=== PATIENT | male | born 1965 | race Caucasian/White ===

== ENCOUNTER 2017-12-09 09:21 | Inpatient (IN) | payer BC ==
[~2017-12-09] VITALS: Ht 172.7 cm; Wt 60.6 kg
[2017-12-09] VITALS (8 sets, daily range): BP systolic 120–138; BP diastolic 80–88; PULSE 74–98; TEMP 35.8–36.7; O2SAT 98–100; Ht 172.7 cm; Wt 60.6 kg
--- NOTE | 2017-12-09 10:03 | EMERGENCY ROOM VISIT NOTE ---
History Report prepared by Adi: Greg Frank Under the Supervision of: Dr. Jose Hassan M.D. First contact with patient: 09:51 Chief Complaint: ABDOMINAL PAIN Stated Complaint: PAIN IN L SIDE, KIDNEY BLOCKAGE Nursing Triage Summary: triage note pt reports left sided abdominal pain 0730 am pt reports also having a hx of bilateral kidney stones inplace, some back pain. nausea, diarreah History of Present Illness The patient is a 52 year old male who presents to the Emergency Room with complaints of sudden onset LLQ abdominal pain that began this morning at 0730, 2.5 hours prior to arrival. The patient states that the pain onset after his morning bowel movement. He notes that the pain began to radiate into his left lower back and left testicle following the initial onset. He denies any urinary symptoms. He did have diarrhea after the episode, but denies noticing melena or hematochezia . He is aware of a stone present in both kidneys. 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 A total of ten systems were reviewed and were otherwise negative. Past Medical & Surgical Medical Problems: (1) Kidney stones Surgical Problems: (1) History of vasectomy Kidney stones Family History FH: cancer Hypertension Social History Smoking Status: Former Smoker Alcohol Use: occasionally Drug Use: none Occupation Status: employed Current/Historical Medications Scheduled Sildenafil Citrate (Viagra), 25 MG PO PRN Allergies Coded Allergies: Neomycin (Unverified Allergy, Unknown, unk, 12/09/17) Sulfa Antibiotics (Unverified Allergy, Unknown, unk, 12/09/17) Physical Exam Vital Signs Date Time Temp Pulse Resp B/P (MAP) Pulse Ox O2 Delivery O2 Flow Rate FiO2 12/09/17 15:45 36.7 82 17 120/83 100 Room Air 12/09/17 15:35 86 12 127/83 99 Room Air 12/09/17 15:25 83 12 115/80 100 Oxymask 10 12/09/17 15:16 36.3 90 16 130/83 100 Oxymask 10 12/09/17 13:07 100 20 118/76 100 Room Air 12/09/17 11:32 78 18 119/75 98 Room Air 12/09/17 10:26 60 20 109/83 100 Room Air 12/09/17 09:43 36.3 71 18 157/88 98 Room Air Physical Exam GENERAL: Awake, alert, well-appearing, in no distress HENT: Normocephalic, atraumatic. Oropharynx unremarkable. EYES: Normal conjunctiva. Sclera non-icteric. NECK: Supple. No nuchal rigidity. FROM. No JVD. RESPIRATORY: Clear to auscultation. CARDIAC: Regular rate, normal rhythm. Extremities warm and well perfused. Equal palpable radial pulses to the bilateral upper extremities. Equal palpable DP pulses to the bilateral lower extremities. ABDOMEN: Soft, non-distended. No tenderness to palpation. No rebound or guarding. No masses. RECTAL: Deferred. MUSCULOSKELETAL: Chest examination reveals no tenderness. The back is symmetrical on inspection without obvious abnormality. There is no CVA tenderness to palpation. No joint edema. LOWER EXTREMITIES: Calves are equal size bilaterally and non-tender. No edema. No discoloration. NEURO: Normal sensorium. No sensory or motor deficits noted. No pronator drift. No facial droop. No dysarthria. SKIN: No rash or jaundice noted. : There is pain on palpation of the left testicle, no inguinal hernia, no lesions. Penis is circumcised, no penile discharge on exam. Medical Decision & Procedures ER Provider Diagnostic Interpretation: Radiology results as stated below per my review and radiologist interpretation: CT SCAN OF THE ABDOMEN AND PELVIS WITHOUT IV CONTRAST CLINICAL HISTORY: Left flank pain. COMPARISON STUDY: No priors. TECHNIQUE: CT scan of the abdomen and pelvis is performed from the lung bases to the proximal femora. Images are reviewed in the axial, sagittal, and coronal planes. IV contrast was not administered for this examination. A dose lowering technique was utilized adhering to the principles of ALARA. CT DOSE: 491.39 mGycm FINDINGS: Lung bases: The heart is normal in size and without pericardial effusion. Fat-containing Bochdalek hernias are present at both lung bases. There is minimal dependent atelectasis. The lung bases are otherwise clear. Liver: The unenhanced liver is normal in size, contour, and attenuation. There is no intrahepatic biliary ductal dilatation. Gallbladder: Unremarkable. Spleen: Normal in size and attenuation. Pancreas: Unremarkable. Adrenal glands: Unremarkable. Kidneys: The unenhanced kidneys are normal in size. There is an 8 mm obstructing calculus in the mid left ureter at the level of L4 seen on image #177. This causes moderate to severe left hydroureteronephrosis. There is associated left-sided perinephric stranding and fluid. No additional calculi are identified in the left kidney. A 5 mm nonobstructing calculus is seen in the right lower pole. There is no evidence of contour deforming renal mass lesion. Abdominal vasculature: The abdominal aorta is normal in course and caliber. Bowel: The small bowel and colon are normal in course and caliber. The appendix is well-visualized and normal. Peritoneum: There is no intraperitoneal free air or abdominal ascites. There is a small fat-containing umbilical hernia. Lymphadenopathy: None. Pelvic viscera: The bladder, prostate, and seminal vesicles are normal as visualized. Surgical clips are seen along the spermatic cord bilaterally. Skeletal structures: No lytic or blastic lesions are seen. IMPRESSION: 1. There is an 8 mm obstructing calculus in the mid left ureter causing moderate to severe left hydroureteronephrosis. 2. No additional left renal calculi are identified. 3. There is a 5 mm nonobstructing calculus in the lower pole the right kidney. 4. Additional findings as above. Electronically signed by: Deven Mena M.D. 12/09/2017 11:37 AM Dictated Date/Time: 12/09/2017 11:33 AM TESTICULAR ULTRASOUND CLINICAL HISTORY: L testicular pain COMPARISON STUDY: None FINDINGS: The right testis measures 47 x 31 x 22 mm pure the left testis measures 53 x 33 x 19 mm. No intratesticular masses are visualized. There is no testicular torsion. No epididymal abnormalities were visualized. IMPRESSION: Normal study. No evidence of testicular torsion. No evidence of intratesticular mass. Electronically signed by: Tani Falcon M.D. 12/09/2017 11:28 AM Dictated Date/Time: 12/09/2017 11:26 AM Laboratory Results 12/09/17 10:20 Red Blood Count 4.65, Mean Corpuscular Volume 90.3, Mean Corpuscular Hemoglobin 32.0, Mean Corpuscular Hemoglobin Concent 35.5, Mean Platelet Volume 10.2, Neutrophils (%) (Auto) 87.9, Lymphocytes (%) (Auto) 7.4, Monocytes (%) (Auto) 4.2, Eosinophils (%) (Auto) 0.2, Basophils (%) (Auto) 0.1, Neutrophils # (Auto) 12.53, Lymphocytes # (Auto) 1.06, Monocytes # (Auto) 0.60, Eosinophils # (Auto) 0.03, Basophils # (Auto) 0.02 12/09/17 10:20 Test 12/09/17 10:20 12/09/17 11:35 White Blood Count 14.27 K/uL (4.8-10.8) Red Blood Count 4.65 M/uL (4.7-6.1) Hemoglobin 14.9 g/dL (14.0-18.0) Hematocrit 42.0 % (42-52) Mean Corpuscular Volume 90.3 fL (80-100) Mean Corpuscular Hemoglobin 32.0 pg (25-34) Mean Corpuscular Hemoglobin Concent 35.5 g/dl (32-36) Platelet Count 237 K/uL (130-400) Mean Platelet Volume 10.2 fL (7.4-10.4) Neutrophils (%) (Auto) 87.9 % Lymphocytes (%) (Auto) 7.4 % Monocytes (%) (Auto) 4.2 % Eosinophils (%) (Auto) 0.2 % Basophils (%) (Auto) 0.1 % Neutrophils # (Auto) 12.53 K/uL (1.4-6.5) Lymphocytes # (Auto) 1.06 K/uL (1.2-3.4) Monocytes # (Auto) 0.60 K/uL (0.11-0.59) Eosinophils # (Auto) 0.03 K/uL (0-0.5) Basophils # (Auto) 0.02 K/uL (0-0.2) RDW Standard Deviation 40.8 fL (36.4-46.3) RDW Coefficient of Variation 12.5 % (11.5-14.5) Immature Granulocyte % (Auto) 0.2 % Immature Granulocyte # (Auto) 0.03 K/uL (0.00-0.02) Anion Gap 3.0 mmol/L (3-11) Est Creatinine Clear Calc Drug Dose 64.2 ml/min Estimated GFR () 84.6 Estimated GFR (Non- 73.0 BUN/Creatinine Ratio 22.9 (10-20) Calcium Level 9.4 mg/dl (8.5-10.1) Urine Color YELLOW Urine Appearance CLEAR (CLEAR) Urine pH 5.0 (4.5-7.5) Urine Specific [place] 1.026 (1.000-1.030) Urine Protein TRACE (NEG) Urine Glucose (UA) NEG (NEG) Urine Ketones TRACE (NEG) Urine Occult Blood 3+ (NEG) Urine Nitrite NEG (NEG) Urine Bilirubin NEG (NEG) Urine Urobilinogen NEG (NEG) Urine Leukocyte Esterase TRACE (NEG) Urine WBC (Auto) 5-10 /hpf (0-5) Urine RBC (Auto) >30 /hpf (0-4) Urine Hyaline Casts (Auto) 5-10 /lpf (0-5) Urine Epithelial Cells (Auto) >30 /lpf (0-5) Urine Bacteria (Auto) NEG (NEG) Urine Renal Epithelial Cells /lpf (0-5) Laboratory results reviewed by me Medications Administered Medications (Trade) Dose Ordered Sig/Mp Route Start Time Stop Time Status Last Admin Dose Admin Sodium Chloride 1,000 ml @ 999 mls/hr Q1H1M STAT IV 12/09/17 10:08 12/09/17 11:08 DC 12/09/17 10:08 999 MLS/HR Ketorolac Tromethamine (Toradol Inj) 15 mg NOW STAT IV 12/09/17 10:08 12/09/17 10:13 DC 12/09/17 10:21 15 MG Ketorolac Tromethamine (Toradol Inj) 15 mg NOW STAT IV 12/09/17 11:53 12/09/17 11:54 DC 12/09/17 11:58 15 MG Ceftriaxone Sodium (Rocephin Inj) 1 gm NOW STAT IV 12/09/17 12:53 12/09/17 12:57 DC 12/09/17 13:05 1 GM Iothalamate Meglumine (Conray 30%) 150 ml STK-MED ONCE .ROUTE 12/09/17 14:56 12/09/17 14:57 DC 12/09/17 14:56 10 ML ED Course 1245: I reevaluated the patient at this time. He is still having pain despite 2 doses of Toradol. I am paging the Unassigned Urology for consult. I will order Morphine for the patient now. 1252: I discussed the case with Craig Pisano PA-C. 1256: The nursing staff informed me that the patient claims that he does not react well to Morphine and refused it We are starting him on Rocephin. 1300: I discussed the case with Maura Gray. She will evaluate the patient for further treatment. Medical Decision The patient's CT shows large left sided kidney stone which is causing hydroureter. Patient's pain was unable to be controlled despite multiple dosages of analgesia. I discussed the case with urology who suggests admission to the hospital, NPO. Hospitalist agrees. Rocephin was ordered for given the results of the urine dip and leukocytosis Consults Time Called: 1245 Consulting Physician: Craig Pisano Returned Call: 1252 I discussed the case with Craig Pisano PA-C. Additional Consults: Time Called: 1253 Consulted Physician: Maura GEORGES Returned Call: 1300 Additional Comments: I discussed the case with Maura Gray. She will evaluate the patient for further treatment. Impression Primary Impression: Nephrolithiasis Additional Impressions: Hydroureter Infection, kidney Scribe Attestation The scribe's documentation has been prepared under my direction and personally reviewed by me in its entirety. I confirm that the note above accurately reflects all work, treatment, procedures, and medical decision making performed by me. Departure Information Dispostion Being Evaluated By Hospitalist Referrals Kushal Geiger M.D. (PCP) Patient Instructions My [facility] Problem Qualifiers
[2017-12-09] MEDS ORDERED: KETOROLAC TROMETHAMINE 30 MG/ML VIAL IV STA ×2 (10:08→11:53)
[2017-12-09] MEDS ORDERED: SODIUM CHLORIDE 0.9% 1000ML 1,000 ML IV STA (10:08)
[2017-12-09] MEDS ORDERED: SILD1TAB11 PO (10:14)
[2017-12-09 10:28] LABS: BASO % 0.1 %; BASO ABS # 0.02 K/uL (0-0.2); EOS % 0.2 %; EOS ABS # 0.03 K/uL (0-0.5); HEMOGLOBIN 14.9 g/dL (14.0-18.0); IG# 0.03 K/uL (0.00-0.02); LYMPH % 7.4 %; LYMPH ABS # 1.06 K/uL (1.2-3.4); MEAN CELL VOLUME 90.3 fL (80-100); MEAN CORPUSCULAR HGB CONC 35.5 g/dl (32-36); MEAN PLATELET VOLUME 10.2 fL (7.4-10.4); MONO % 4.2 %; NEUT % 87.9 %; NEUT ABS # 12.53 K/uL (1.4-6.5); PLATELET COUNT 237 K/uL (130-400); RED CELL DISTRIBUTION WIDTH CV 12.5 % (11.5-14.5); RED CELL DISTRIBUTION WIDTH SD 40.8 fL (36.4-46.3); WHITE BLOOD COUNT 14.27 K/uL (4.8-10.8)
[2017-12-09 10:45] LABS: CALCIUM 9.4 mg/dl (8.5-10.1); CREATININE 1.14 mg/dl (0.60-1.40); POTASSIUM 3.9 mmol/L (3.5-5.1)
--- NOTE | 2017-12-09 11:29 | DIAGNOSTIC IMAGING REPORT ---
TESTICULAR ULTRASOUND CLINICAL HISTORY: L testicular pain COMPARISON STUDY: None FINDINGS: The right testis measures 47 x 31 x 22 mm pure the left testis measures 53 x 33 x 19 mm. No intratesticular masses are visualized. There is no testicular torsion. No epididymal abnormalities were visualized. IMPRESSION: Normal study. No evidence of testicular torsion. No evidence of intratesticular mass. Electronically signed by: Tani Falcon M.D. 12/09/2017 11:28 AM Dictated Date/Time: 12/09/2017 11:26 AM
--- NOTE | 2017-12-09 11:38 | DIAGNOSTIC IMAGING REPORT ---
CT SCAN OF THE ABDOMEN AND PELVIS WITHOUT IV CONTRAST CLINICAL HISTORY: Left flank pain. COMPARISON STUDY: No priors. TECHNIQUE: CT scan of the abdomen and pelvis is performed from the lung bases to the proximal femora. Images are reviewed in the axial, sagittal, and coronal planes. IV contrast was not administered for this examination. A dose lowering technique was utilized adhering to the principles of ALARA. CT DOSE: 491.39 mGycm FINDINGS: Lung bases: The heart is normal in size and without pericardial effusion. Fat-containing Bochdalek hernias are present at both lung bases. There is minimal dependent atelectasis. The lung bases are otherwise clear. Liver: The unenhanced liver is normal in size, contour, and attenuation. There is no intrahepatic biliary ductal dilatation. Gallbladder: Unremarkable. Spleen: Normal in size and attenuation. Pancreas: Unremarkable. Adrenal glands: Unremarkable. Kidneys: The unenhanced kidneys are normal in size. There is an 8 mm obstructing calculus in the mid left ureter at the level of L4 seen on image #177. This causes moderate to severe left hydroureteronephrosis. There is associated left-sided perinephric stranding and fluid. No additional calculi are identified in the left kidney. A 5 mm nonobstructing calculus is seen in the right lower pole. There is no evidence of contour deforming renal mass lesion. Abdominal vasculature: The abdominal aorta is normal in course and caliber. Bowel: The small bowel and colon are normal in course and caliber. The appendix is well-visualized and normal. Peritoneum: There is no intraperitoneal free air or abdominal ascites. There is a small fat-containing umbilical hernia. Lymphadenopathy: None. Pelvic viscera: The bladder, prostate, and seminal vesicles are normal as visualized. Surgical clips are seen along the spermatic cord bilaterally. Skeletal structures: No lytic or blastic lesions are seen. IMPRESSION: 1. There is an 8 mm obstructing calculus in the mid left ureter causing moderate to severe left hydroureteronephrosis. 2. No additional left renal calculi are identified. 3. There is a 5 mm nonobstructing calculus in the lower pole the right kidney. 4. Additional findings as above. Electronically signed by: Deven Mena M.D. 12/09/2017 11:37 AM Dictated Date/Time: 12/09/2017 11:33 AM
[2017-12-09] MEDS ORDERED: MoRPHine SULFATE 10 MG/ML CARP/VIAL IV STA (12:47)
[2017-12-09] MEDS ORDERED: ONDANSETRON INJ 2 MG/ML 2 ML VIAL IV STA (12:47)
[2017-12-09] MEDS ORDERED: CEFTRIAXONE SOD INJ 1 GM ADDVIAL IV STA (12:53)
[2017-12-09] MEDS ORDERED: ACETAMINOPHEN 325 MG TAB PO PRN (13:30)
[2017-12-09] MEDS ORDERED: ONDANSETRON INJ 2 MG/ML 2 ML VIAL IV PRN ×2 (13:30→14:15)
--- NOTE | 2017-12-09 13:39 | Urology Consultation ---
History General Date of Service: Dec 09, 2017. Primary Care Physician: Kushal Geiger M.D. Pt seen a urologist before?: Yes If yes, why?: Hematuria, stone History of Present Illness Woke up with severe left flank pain radiating to the groin in waves with no position of comfort. Doubles over in severe sharp pain. Mild improvement in ER. Found to have 8mm obstr stone on left. Laboratory Labs were reviewed and are within normal limits unless listed below. Labs are available in the chart and at [facility] Problem List Medical Problems: (1) Kidney stones Status: Chronic Past History kidney stones Pt had a problem w anesthesia?: No Past Surgical History: no surgical history Family History FH: cancer Hypertension Social History Occupation status: employed History of MDRO No Allergies Coded Allergies: Neomycin (Unverified Allergy, Unknown, unk, 12/09/17) Sulfa Antibiotics (Unverified Allergy, Unknown, unk, 12/09/17) Medications Home Medications: Home Meds and Scripts Medications Dose Route/Sig Max Daily Dose Days Date Category Viagra (Sildenafil Citrate) 25 Mg Tab 25 Mg PO PRN 12/09/17 Reported Inpatient Medications: Current Inpatient Medications Medications (Trade) Dose Ordered Sig/Mp Route Start Time Stop Time Status Last Admin Dose Admin Acetaminophen (Tylenol Tab) 650 mg Q4H PRN PO 12/09/17 13:30 01/08/18 13:29 UNV Ondansetron HCl (Zofran Inj) 4 mg Q6H PRN IV 12/09/17 13:30 01/08/18 13:29 UNV Review of Systems Review of Systems All Other Systems: Reviewed and Negative Additional Comments: All reviewed. Pertinent positives and negatives in HPI. Physical Exam Vital Signs: Vital Signs Past 12 Hours Date Time Temp Pulse Resp B/P (MAP) Pulse Ox O2 Delivery O2 Flow Rate FiO2 12/09/17 13:07 100 20 118/76 100 Room Air 12/09/17 11:32 78 18 119/75 98 Room Air 12/09/17 10:26 60 20 109/83 100 Room Air 12/09/17 09:43 36.3 71 18 157/88 98 Room Air Physical Exam: General Appearance: WD/WN, no apparent distress Eyes: bilateral eyes normal inspection ENT: normal ENT inspection, pharynx normal Neck: supple, no JVD Respiratory/Chest: chest non-tender, no respiratory distress Cardiovascular: regular rate, rhythm Gastrointestinal: Abdomen: normal abdomen Bladder: tender Renal: cva tenderness Extremities: normal range of motion, normal inspection, no pedal edema, no calf tenderness 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 Left Obst Stone 2. Intractible Pain. Plan to go to OR with cystoscopy and stent placement on left for obstructing stone. Risks and benefits discussed at length with the patient. Will assess stone and position to determine treatment options. Will follow closely. Agree with preoperative antibiotics.
[2017-12-09] MEDS ORDERED: KETOROLAC TROMETHAMINE 30 MG/ML VIAL IV PRN (13:45)
[2017-12-09] MEDS ORDERED: PROMETHAZINE HCL INJ 6.25 MG in SODIUM CHLORIDE 0.9% 50ML 50 ML IV PRN (14:15)
[2017-12-09] MEDS ORDERED: FENTANYL CITRATE INJ 50 MCG/1 ML 2 ML VIAL IV PRN (14:15)
[2017-12-09] MEDS ORDERED: EpHEDrine SULFATE INJ 50 MG/ML AMP IV PRN (14:15)
[2017-12-09] MEDS ORDERED: ATROPINE SULFATE 0.1 MG/ML 5ML SYR IV PRN (14:15)
[2017-12-09] MEDS ORDERED: MIDAZOLAM HCL 1 MG/ML 2ML VIAL ONE (14:28)
[2017-12-09] MEDS ORDERED: PROPOFOL IV EMULSION 10 MG/ML 20 ML VIAL IV ONE (14:28)
[2017-12-09] MEDS ORDERED: LIDOCAINE HCL 2% 2 ML VIAL (20MG/ML) ONE (14:28)
[2017-12-09] MEDS ORDERED: FENTANYL CITRATE INJ 50 MCG/1 ML 2 ML VIAL ONE (14:28)
[2017-12-09] MEDS ORDERED: CONRAY 30% 150ML BOTTLE ONE (14:56)
[2017-12-09] MEDS ORDERED: ONDANSETRON INJ 2 MG/ML 2 ML VIAL ONE (15:03)
--- NOTE | 2017-12-09 15:08 | [facility] Operative Report ---
Operative Report Operative Date Dec 09, 2017. Pre-Operative Diagnosis Stone Post-Operative Diagnosis Same Procedure(s) Performed Cystoscopy and left stent placement Surgeon Gareth Estimated Blood Loss Minimal Findings Obstructing left stone. Specimens None Drains 6x26 Double J Left Anesthesia General Complication(s) None Disposition Recovery Room / PACU Indications Obstructing stone with severe pain and no position of relief. Description of Procedure Patient was consented and brought back to the operating room. Patient was placed under anesthesia in the supine position and moved to the dorsal lithotomy position. Patient was prepped and draped in the regular sterile fashion. A time out was completed. A 30degree Cystoscope was placed into the bladder and the entire bladder was examined. The UO's were identified. The left was cannulized with a catheter and a retrograde pyelogram was completed. A wire was then placed. With the wire in place, a 6 x [26] Double J stent was placed. It was confirmed with fluoroscopy. With the stent in place, the bladder was emptied. The scope was removed. The patient was cleaned, aroused from anesthesia, and transferred to the pacu in stable condition having tolerated the procedure well with no complications. I was present and participated in all aspects of the procedure. The patient will be monitored in the PACU until transferred. I attest to the content of the Intraoperative Record and any orders documented therein. Any exceptions are noted below.
--- NOTE | 2017-12-09 15:15 | History and Physical ---
History & Physical Date & Time of Service: Dec 09, 2017 ~ 13:15 Chief Complaint: LLQ Pain Primary Care Physician: Kushal Geiger M.D. History of Present Illness 52 year old male who presented to the ED with LLQ pain. Patient reports pain came on suddenly around 0730 this morning. Pain was severe. It radiated into the left groin. He denies flank pain. No dysuria or hematuria. Reports he has been feeling well recently. No fevers or chills. He reports nausea when the pain was severe. No vomiting or diarrhea. He denies chest pain and shortness of breath. No lightheadedness, dizziness, diaphoresis, or syncopal events. In the ED, patient is found to have an 8 mm obstructing calculus in the mid left ureter causing moderate to severe left hydroureteronephrosis. Renal functions are normal. WBC 14K. Vitals are stable. Patient was given IVF, IV Toradol, and IV Rocephin. He reports much improvement in his symptoms. Past Medical/Surgical History Medical Problems: (1) Kidney stones Status: Chronic Surgical Problems: (1) History of vasectomy Status: Chronic Family History FH: ovarian cancer MOTHER Social History Smoking Status: Former Smoker Alcohol Use: occasionally Immunizations History of Influenza Vaccine: Yes Influenza Vaccine Date: Aug 17, 2017 History of Tetanus Vaccine?: Yes Tetanus Immunization Date: Dec 17, 2010 Multi-Drug Resistant Organisms History of MDRO: No Allergies Coded Allergies: Neomycin (Unverified Allergy, Unknown, unk, 12/09/17) Sulfa Antibiotics (Unverified Allergy, Unknown, unk, 12/09/17) Home Medications Scheduled Sildenafil Citrate (Viagra), 25 MG PO PRN Review of Systems ROS per HPI, all other systems reviewed and negative Physical Exam Vital Signs Date Time Temp Pulse Resp B/P (MAP) Pulse Ox O2 Delivery O2 Flow Rate FiO2 12/09/17 13:07 100 20 118/76 100 Room Air 12/09/17 11:32 78 18 119/75 98 Room Air 12/09/17 10:26 60 20 109/83 100 Room Air 12/09/17 09:43 36.3 71 18 157/88 98 Room Air General Appearance: WD/WN, no apparent distress Head: normocephalic, atraumatic Eyes: normal inspection, EOMI, sclerae normal ENT: hearing grossly normal, + pertinent finding (mucous membranes moist) Neck: supple, no JVD, trachea midline Respiratory/Chest: lungs clear, normal breath sounds, no respiratory distress Cardiovascular: regular rate, rhythm, no edema, normal peripheral pulses Abdomen/GI: normal bowel sounds, non tender, soft, no organomegaly Back: no CVA tenderness Extremities/Musculoskelatal: normal inspection, no calf tenderness, normal capillary refill Neurologic/Psych: no motor/sensory deficits, alert, normal mood/affect, oriented x 3 Skin: normal color, warm/dry Diagnostics Laboratory Results Results Past 24 Hours Test 12/09/17 10:20 12/09/17 11:35 Range/Units White Blood Count 14.27 4.8-10.8 K/uL Red Blood Count 4.65 4.7-6.1 M/uL Hemoglobin 14.9 14.0-18.0 g/dL Hematocrit 42.0 42-52 % Mean Corpuscular Volume 90.3 80-100 fL Mean Corpuscular Hemoglobin 32.0 25-34 pg Mean Corpuscular Hemoglobin Concent 35.5 32-36 g/dl Platelet Count 237 130-400 K/uL Mean Platelet Volume 10.2 7.4-10.4 fL Neutrophils (%) (Auto) 87.9 % Lymphocytes (%) (Auto) 7.4 % Monocytes (%) (Auto) 4.2 % Eosinophils (%) (Auto) 0.2 % Basophils (%) (Auto) 0.1 % Neutrophils # (Auto) 12.53 1.4-6.5 K/uL Lymphocytes # (Auto) 1.06 1.2-3.4 K/uL Monocytes # (Auto) 0.60 0.11-0.59 K/uL Eosinophils # (Auto) 0.03 0-0.5 K/uL Basophils # (Auto) 0.02 0-0.2 K/uL RDW Standard Deviation 40.8 36.4-46.3 fL RDW Coefficient of Variation 12.5 11.5-14.5 % Immature Granulocyte % (Auto) 0.2 % Immature Granulocyte # (Auto) 0.03 0.00-0.02 K/uL Sodium Level 136 136-145 mmol/L Potassium Level 3.9 3.5-5.1 mmol/L Chloride Level 103 98-107 mmol/L Carbon Dioxide Level 30 21-32 mmol/L Anion Gap 3.0 3-11 mmol/L Blood Urea Nitrogen 26 7-18 mg/dl Creatinine 1.14 0.60-1.40 mg/dl Est Creatinine Clear Calc Drug Dose 64.2 ml/min Estimated GFR () 84.6 Estimated GFR (Non- 73.0 BUN/Creatinine Ratio 22.9 10-20 Random Glucose 116 70-99 mg/dl Calcium Level 9.4 8.5-10.1 mg/dl Urine Color YELLOW Urine Appearance CLEAR CLEAR Urine pH 5.0 4.5-7.5 Urine Specific [place] 1.026 1.000-1.030 Urine Protein TRACE NEG Urine Glucose (UA) NEG NEG Urine Ketones TRACE NEG Urine Occult Blood 3+ NEG Urine Nitrite NEG NEG Urine Bilirubin NEG NEG Urine Urobilinogen NEG NEG Urine Leukocyte Esterase TRACE NEG Urine WBC (Auto) 5-10 0-5 /hpf Urine RBC (Auto) >30 0-4 /hpf Urine Hyaline Casts (Auto) 5-10 0-5 /lpf Urine Epithelial Cells (Auto) >30 0-5 /lpf Urine Bacteria (Auto) NEG NEG Urine Renal Epithelial Cells 0-5 /lpf Diagnostic Radiology TESTICULAR US IMPRESSION: Normal study. No evidence of testicular torsion. No evidence of intratesticular mass. CT ABD/PELVIS IMPRESSION: 1. There is an 8 mm obstructing calculus in the mid left ureter causing moderate to severe left hydroureteronephrosis. 2. No additional left renal calculi are identified. 3. There is a 5 mm nonobstructing calculus in the lower pole the right kidney. Impression Assessment and Plan LEFT OBSTRUCTING URETERAL CALCULI WITH HYDRONEPHROSIS - admit to med/surg - patient presenting with sudden onset of LLQ pain that began this morning; in the ED, found to have 8mm obstructing left ureteral calculi - going to OR for cysto directly from ED with Dr. Servin - U/A abnormal however possibly contaminant; s/p Rocephin in the ED, will continue with for now - renal functions normal - IVF, pain control DVT PROPHYLAXIS - SCDs due to invasive procedure DISPO - In my clinical judgment this beneficiary meets acute admission criteria, established by [facility], that includes being hospitalized through two midnights. ADDENDUM: I saw the patient in room 356 after the cystoscope and stent was placed. He denies any pain now. Denies urinary symptoms at this time. Tolerating PO intake with no nausea/vomiting. Plan for tonight: continue IV fluids and IV Rocephin will likely be discharged in AM on antibiotics, pain meds and outpatient urology f/u (he would like to see Dr. Leon on discharge) VTE Prophylaxis VTE Risk Assessment Done? Y/N: Yes Risk Level: Low
--- NOTE | 2017-12-09 15:29 | DIAGNOSTIC IMAGING REPORT ---
RETROGRADE INCLUDES KUB CLINICAL HISTORY: STENT PLACEMENT COMPARISON STUDY: CT of the abdomen and pelvis December 09, 2017. Fluoroscopy time: 1 minute and 20 seconds. FINDINGS: 4 fluoroscopic images from a left retrograde exam demonstrate the proximal left ureteral calculus with placement of a left ureteral stent. The stent appears appropriately positioned. IMPRESSION: Fluoroscopic images from left retrograde exam with ureteral stent insertion. Electronically signed by: Jv Terry M.D. 12/09/2017 3:27 PM Dictated Date/Time: 12/09/2017 3:26 PM
--- NOTE | 2017-12-09 15:48 | Anesthesiology Progress Note ---
Anesthesia Post Op Note Date & Time Dec 09, 2017 at 15:48 Vital Signs Pain Intensity: 0 Vital Signs Past 12 Hours Date Time Temp Pulse Resp B/P (MAP) Pulse Ox O2 Delivery O2 Flow Rate FiO2 12/09/17 15:45 36.7 82 17 120/83 100 Room Air 12/09/17 15:35 86 12 127/83 99 Room Air 12/09/17 15:25 83 12 115/80 100 Oxymask 10 12/09/17 15:16 36.3 90 16 130/83 100 Oxymask 10 12/09/17 13:07 100 20 118/76 100 Room Air 12/09/17 11:32 78 18 119/75 98 Room Air 12/09/17 10:26 60 20 109/83 100 Room Air 12/09/17 09:43 36.3 71 18 157/88 98 Room Air Notes Mental Status: alert / awake / arousable, participated in evaluation Pt Amnestic to Procedure: Yes Nausea / Vomiting: adequately controlled Pain: adequately controlled Airway Patency, RR, SpO2: stable & adequate BP & HR: stable & adequate Hydration State: stable & adequate Anesthetic Complications: no major complications apparent
[2017-12-09] MEDS: SODIUM CHLORIDE 0.9% 1000ML 1,000 ML IV SCH (17:26)
[2017-12-10] MEDS: SODIUM CHLORIDE 0.9% 1000ML 1,000 ML IV SCH ×2 (03:06→13:00)
[2017-12-10] MEDS ORDERED: NURSING VERBAL MED ORDER ONE (03:15)
[2017-12-10 03:28] VITALS: BP 118/82; PULSE 68; TEMP 36.6; O2SAT 98
[2017-12-10 07:14] LABS: HEMATOCRIT 37.6 % (42-52); MEAN CELL VOLUME 90.8 fL (80-100); MEAN CORPUSCULAR HEMOGLOBIN 31.4 pg (25-34); MEAN CORPUSCULAR HGB CONC 34.6 g/dl (32-36); PLATELET COUNT 184 K/uL (130-400); RED CELL DISTRIBUTION WIDTH CV 12.6 % (11.5-14.5); RED CELL DISTRIBUTION WIDTH SD 41.6 fL (36.4-46.3); WHITE BLOOD COUNT 6.71 K/uL (4.8-10.8)
[2017-12-10 07:20] VITALS: O2SAT 98
[2017-12-10 07:39] VITALS: BP 118/76; PULSE 74; TEMP 36.7; O2SAT 98
[2017-12-10 07:46] LABS: CALCIUM 8.3 mg/dl (8.5-10.1); CREATININE 0.82 mg/dl (0.60-1.40); POTASSIUM 3.9 mmol/L (3.5-5.1)
--- NOTE | 2017-12-10 08:40 | Anesthesiology Progress Note ---
Anesthesia Post Op Note Date & Time Dec 10, 2017 at 08:40 Vital Signs Pain Intensity: 0.0 Vital Signs Past 12 Hours Date Time Temp Pulse Resp B/P (MAP) Pulse Ox O2 Delivery O2 Flow Rate FiO2 12/10/17 07:39 36.7 74 16 118/76 (90) 98 Room Air 12/10/17 07:20 98 Room Air 12/10/17 03:28 36.6 68 14 118/82 (94) 98 Room Air 12/09/17 23:20 99 Room Air 12/09/17 23:10 36.6 75 16 123/82 (96) 99 Room Air Notes Mental Status: alert / awake / arousable, participated in evaluation Pt Amnestic to Procedure: Yes Nausea / Vomiting: adequately controlled Pain: adequately controlled Airway Patency, RR, SpO2: stable & adequate BP & HR: stable & adequate Hydration State: stable & adequate Anesthetic Complications: no major complications apparent
[2017-12-10] MEDS ORDERED: CEFTRIAXONE SOD INJ 1 GM in DEXTROSE 5% ADD-VANTAGE 50ML 50 ML IV SCH (09:00)
[2017-12-10 10:37] VITALS: BP 115/74; PULSE 84; TEMP 36.7; O2SAT 99
[2017-12-10 10:48] VITALS: BP 115/74; PULSE 84; TEMP 36.7; O2SAT 99
[2017-12-10] MEDS ORDERED: CIPR-255 PO (11:24)
[2017-12-10] MEDS ORDERED: TAMS0.4C38 PO (11:24)
--- NOTE | 2017-12-10 11:31 | Discharge Instructions ---
Discharge Instructions Date of Service Dec 10, 2017. Admission Reason for Admission: Kidney Stone Discharge Discharge Diagnosis / Problem: Kidney Stone Discharge Goals Goal(s): Decrease discomfort, Improve function Activity Recommendations Activity Limitations: resume your previous activity . Instructions / Follow-Up Instructions / Follow-Up You were admitted to the hospital for a kidney stone. You had a procedure to have the stone removed and also had a stent placed. Start taking Flomax 0.4mg daily - take your first dose today Cipro 500mg twice a day for 5 days - take your first dose tomorrow You will receive a call from the urology office regarding follow up appointment. Appointment with Dr. Geiger - Wednesday12/17/16 at 10:45 Current Hospital Diet Patient's current hospital diet: Regular Diet Discharge Diet Recommended Diet: Regular Diet Procedures Procedures Performed: Cystoscopy and left stent placement Pending Studies Studies pending at discharge: no Medical Emergencies . Who to Call and When: Medical Emergencies: If at any time you feel your situation is an emergency, please call 911 immediately. . Non-Emergent Contact Non-Emergency issues call your: Primary Care Provider, Hospital Doctor Call Non-Emergent contact if: you have a fever, your pain is not controlled, you have any medication questions . Past History Medical & Surgical History: (1) Kidney stones (2) History of vasectomy . "Provider Documentation" section prepared by Maura Luo. . VTE Core Measure Inpt VTE Proph given/why not?: SCD's
--- NOTE | 2017-12-10 13:05 | Progress Note ---
Subjective Date of Service: Dec 10, 2017. Subjective Pt evaluation today including: conversation w/ patient Pain: Controlled Doing well. Pain well controlled. Stent tolerated. Ambulating. No fevers. Problem List Medical Problems: (1) Kidney stones Status: Chronic Review of Systems All Other Systems: Reviewed and Negative Objective Vital Signs Date Time Temp Pulse Resp B/P (MAP) Pulse Ox O2 Delivery O2 Flow Rate FiO2 12/10/17 10:48 36.7 84 16 99 Room Air 12/10/17 10:37 36.7 84 16 115/74 (88) 99 Room Air 12/10/17 07:39 36.7 74 16 118/76 (90) 98 Room Air 12/10/17 07:20 98 Room Air 12/10/17 03:28 36.6 68 14 118/82 (94) 98 Room Air 12/09/17 23:20 99 Room Air 12/09/17 23:10 36.6 75 16 123/82 (96) 99 Room Air 12/09/17 19:13 36.6 97 18 138/88 (105) 99 Room Air 12/09/17 17:56 36.5 74 20 130/87 (101) 100 Room Air 12/09/17 17:22 Room Air 12/09/17 17:04 Room Air 12/09/17 17:00 35.8 76 18 134/80 (98) 100 Room Air 12/09/17 16:42 36.7 17 120/83 Room Air 12/09/17 16:30 36.5 78 16 136/80 (98) 100 Room Air 12/09/17 16:00 36.4 98 16 129/80 (96) 98 Room Air 12/09/17 15:45 36.7 82 17 120/83 100 Room Air 12/09/17 15:35 86 12 127/83 99 Room Air 12/09/17 15:25 83 12 115/80 100 Oxymask 10 12/09/17 15:16 36.3 90 16 130/83 100 Oxymask 10 12/09/17 13:07 100 20 118/76 100 Room Air Physical Exam General Appearance: WD/WN, no apparent distress Eyes: normal inspection Neck: supple, no adenopathy Respiratory/Chest: no respiratory distress Cardiovascular: regular rate, rhythm Abdomen: non tender, soft, no organomegaly Extremities: normal range of motion, normal inspection, no pedal edema Neurologic/Psychiatric: gem stone cutter II-XII nml as tested, no motor/sensory deficits, alert, normal mood/affect, oriented x 3 Skin: normal color, warm/dry, no rash Lymphatic: no adenopathy Laboratory Results Last 24 Hours Test 12/10/17 06:55 White Blood Count 6.71 K/uL Red Blood Count 4.14 M/uL Hemoglobin 13.0 g/dL Hematocrit 37.6 % Mean Corpuscular Volume 90.8 fL Mean Corpuscular Hemoglobin 31.4 pg Mean Corpuscular Hemoglobin Concent 34.6 g/dl RDW Standard Deviation 41.6 fL RDW Coefficient of Variation 12.6 % Platelet Count 184 K/uL Mean Platelet Volume 10.0 fL Sodium Level 138 mmol/L Potassium Level 3.9 mmol/L Chloride Level 107 mmol/L Carbon Dioxide Level 25 mmol/L Anion Gap 6.0 mmol/L Blood Urea Nitrogen 18 mg/dl Creatinine 0.82 mg/dl Est Creatinine Clear Calc Drug Dose 89.3 ml/min Estimated GFR () 117.0 Estimated GFR (Non- 101.0 BUN/Creatinine Ratio 21.5 Random Glucose 89 mg/dl Calcium Level 8.3 mg/dl Assessment and Plan POD 1 s/p Stent Left Kidney for obs stone Plan to follow up in 1 week to discuss treatment. Continue pain meds as needed with antibiotics for coverage. Monitor for issues and fever.
--- NOTE | 2017-12-10 13:36 | Hospitalist Progress Note ---
Hospitalist Progress Note Date of Service Dec 10, 2017. (Maura Luo ., JOSÉ MANUEL) Subjective Had cysto with stone removal and stent placement yesterday. Patient reports feeling much better today. Mild discomfort with urination. No flank pain. Denies fever and chills. No abdominal pain, nausea, or vomiting. (Maura Luo ., JOSÉ MANUEL) Objective Vital Signs Date Time Temp Pulse Resp B/P (MAP) Pulse Ox O2 Delivery O2 Flow Rate FiO2 12/10/17 10:48 36.7 84 16 99 Room Air 12/10/17 10:37 36.7 84 16 115/74 (88) 99 Room Air 12/10/17 07:39 36.7 74 16 118/76 (90) 98 Room Air 12/10/17 07:20 98 Room Air 12/10/17 03:28 36.6 68 14 118/82 (94) 98 Room Air 12/09/17 23:20 99 Room Air 12/09/17 23:10 36.6 75 16 123/82 (96) 99 Room Air 12/09/17 19:13 36.6 97 18 138/88 (105) 99 Room Air 12/09/17 17:56 36.5 74 20 130/87 (101) 100 Room Air 12/09/17 17:22 Room Air 12/09/17 17:04 Room Air 12/09/17 17:00 35.8 76 18 134/80 (98) 100 Room Air 12/09/17 16:42 36.7 17 120/83 Room Air 12/09/17 16:30 36.5 78 16 136/80 (98) 100 Room Air 12/09/17 16:00 36.4 98 16 129/80 (96) 98 Room Air 12/09/17 15:45 36.7 82 17 120/83 100 Room Air 12/09/17 15:35 86 12 127/83 99 Room Air 12/09/17 15:25 83 12 115/80 100 Oxymask 10 12/09/17 15:16 36.3 90 16 130/83 100 Oxymask 10 (Maura Luo ., JOSÉ MANUEL) Physical Exam General Appearance: WD/WN, no apparent distress Respiratory/Chest: lungs clear, normal breath sounds, no respiratory distress Cardiovascular: regular rate, rhythm, no edema, no murmur Abdomen: normal bowel sounds, non tender, soft, no organomegaly Neurologic/Psychiatric: alert, oriented x 3 (Maura Luo CRNP) Laboratory Results Item Value Date Time White Blood Count 6.71 K/uL 12/10/17 0655 Hemoglobin 13.0 g/dL L 12/10/17 06 Hematocrit 37.6 % L 12/10/17 06 Platelet Count 184 K/uL 12/10/17 0655 Sodium Level 138 mmol/L 12/10/17 0655 Potassium Level 3.9 mmol/L 12/10/17 06 Blood Urea Nitrogen 18 mg/dl 12/10/17 06 Creatinine 0.82 mg/dl # 12/10/17 06 (Maura Luo CRNP) Assessment and Plan LEFT OBSTRUCTING URETERAL CALCULI WITH HYDRONEPHROSIS - patient presented with sudden onset of LLQ pain; in the ED, found to have 8mm obstructing left ureteral calculi - s/p cysto with stone removal and stent placement 12/[address] Servin - renal functions remained normal - received Rocephin, will d/c on Cipro for 5 days - start Flomax - pain controlled, patient advised to use Tylenol or Motrin as needed for pain - follow up with urology DVT PROPHYLAXIS - SCDs due to invasive procedure DISPO - d/c today (Maura Luo CRNP) Attending addendum: The patient was seen and examined S/P Left Ureteric stent placement Patient denies any symptoms Hemodynamically stable Chest-clear to auscultate bilaterally Heart-regular Abdomen-benign,no tenderness in renal angles Labs and imaging studies were reviewed Agree with the assessment and plan. Dr Paola Temple (Tanika Temple M.D.)
--- NOTE | 2017-12-10 13:45 | Discharge Summary ---
Discharge Summary Date of Service Dec 10, 2017. Discharge Summary Admission Date: Dec 09, 2017 at 13:22 Discharge Date: Dec 10, 2017 Discharge Disposition: Home Principal Diagnosis: LEFT OBSTRUCTING URETERAL CALCULI WITH HYDRONEPHROSIS Procedures: Cystoscopy and left stent placement on 12/09/16 CT ABD/PELVIS IMPRESSION: 1. There is an 8 mm obstructing calculus in the mid left ureter causing moderate to severe left hydroureteronephrosis. 2. No additional left renal calculi are identified. 3. There is a 5 mm nonobstructing calculus in the lower pole the right kidney. TESTICULAR US IMPRESSION: Normal study. No evidence of testicular torsion. No evidence of intratesticular mass. Consultations: [place]. [place]in, [facility] Medication Reconciliation New Medications: Ciprofloxacin Hcl (Cipro) 500 Mg Tab 1 TAB PO BID for 5 Days, #10 TAB Tamsulosin Hcl (Flomax) 0.4 Mg Cap 0.4 MG PO DAILY for 30 Days, #30 CAP Continued Medications: Sildenafil Citrate (Viagra) 25 Mg Tab 25 MG PO PRN, TAB Admission Information HPI (per Admitting provider): 52 year old male who presented to the ED with LLQ pain. Patient reports pain came on suddenly around 0730 this morning. Pain was severe. It radiated into the left groin. He denies flank pain. No dysuria or hematuria. Reports he has been feeling well recently. No fevers or chills. He reports nausea when the pain was severe. No vomiting or diarrhea. He denies chest pain and shortness of breath. No lightheadedness, dizziness, diaphoresis, or syncopal events. In the ED, patient is found to have an 8 mm obstructing calculus in the mid left ureter causing moderate to severe left hydroureteronephrosis. Renal functions are normal. WBC 14K. Vitals are stable. Patient was given IVF, IV Toradol, and IV Rocephin. He reports much improvement in his symptoms. Physical Exam (per Admitting): General Appearance: WD/WN, no apparent distress Head: normocephalic, atraumatic Eyes: normal inspection, EOMI, sclerae normal ENT: hearing grossly normal, + pertinent finding (mucous membranes moist) Neck: supple, no JVD, trachea midline Respiratory/Chest: lungs clear, normal breath sounds, no respiratory distress Cardiovascular: regular rate, rhythm, no edema, normal peripheral pulses Abdomen/GI: normal bowel sounds, non tender, soft, no organomegaly Back: no CVA tenderness Extremities/Musculoskelatal: normal inspection, no calf tenderness, normal capillary refill Neurologic/Psych: no motor/sensory deficits, alert, normal mood/affect, oriented x 3 Skin: normal color, warm/dry Hospital Course LEFT OBSTRUCTING URETERAL CALCULI WITH HYDRONEPHROSIS - patient presented with sudden onset of LLQ pain; in the ED, found to have 8mm obstructing left ureteral calculi - s/p cysto with stone removal and stent placement 12/[address] Servin - renal functions remained normal - received Rocephin, will d/c on Cipro for 5 days - start Flomax - pain controlled, patient advised to use Tylenol or Motrin as needed for pain - follow up with urology Total time spent on discharge = 25 minutes This includes examination of the patient, discharge planning, medication reconciliation, and communication with other providers. Discharge Instructions Discharge Instructions Date of Service Dec 10, 2017. Admission Reason for Admission: Kidney Stone Discharge Discharge Diagnosis / Problem: Kidney Stone Discharge Goals Goal(s): Decrease discomfort, Improve function Activity Recommendations Activity Limitations: resume your previous activity . Instructions / Follow-Up Instructions / Follow-Up You were admitted to the hospital for a kidney stone. You had a procedure to have the stone removed and also had a stent placed. Start taking Flomax 0.4mg daily - take your first dose today Cipro 500mg twice a day for 5 days - take your first dose tomorrow You will receive a call from the urology office regarding follow up appointment. Appointment with Dr. Geiger - Wednesday12/17/16 at 10:45 Current Hospital Diet Patient's current hospital diet: Regular Diet Discharge Diet Recommended Diet: Regular Diet Procedures Procedures Performed: Cystoscopy and left stent placement Pending Studies Studies pending at discharge: no Medical Emergencies . Who to Call and When: Medical Emergencies: If at any time you feel your situation is an emergency, please call 911 immediately. . Non-Emergent Contact Non-Emergency issues call your: Primary Care Provider, Hospital Doctor Call Non-Emergent contact if: you have a fever, your pain is not controlled, you have any medication questions . Past History Medical & Surgical History: (1) Kidney stones (2) History of vasectomy . "Provider Documentation" section prepared by Maura Luo. . VTE Core Measure Inpt VTE Proph given/why not?: SCD's Additional Copies To Kushal Geiger M.D.
== END 2017-12-10 13:20 | disposition home or self-care (01) | DRG 694 ==
LOC: C.EDB 09:22 → C.MSW 13:22 → ENRESERV 15:34
PROVIDERS: ADMIT Family Medicine; ATTEND Internal Medicine
PROC: 0T778DZ Dilation of Left Ureter with Intraluminal Device, Via Natural or Artificial Opening Endoscopic (ICD-10-PCS; principal; 2017-12-09 11:45)
DX: N13.2 Hydronephrosis with renal and ureteral calculous obstruction (principal); Z87.891 Personal history of nicotine dependence

== ENCOUNTER → 2017-12-20 | Outpatient (CLI) | payer BC ==
[~2017-12-20] MED LIST: CIPR-255 PO; SILD1TAB11 PO; TAMS0.4C38 PO
--- NOTE | 2017-12-20 11:18 | DIAGNOSTIC IMAGING REPORT ---
CHEST 2 VIEWS ROUTINE CLINICAL HISTORY: Preoperative evaluation. Nephrolithiasis. COMPARISON STUDY: None. FINDINGS: Lung volumes are normal. Lungs are clear. No pneumothorax or pleural effusion is noted. Cardiac size is normal. Mediastinal contours are normal. There is no evidence of pulmonary edema. IMPRESSION: No acute cardiopulmonary findings. Electronically signed by: Jv Terry M.D. 12/20/2017 11:16 AM Dictated Date/Time: 12/20/2017 11:16 AM
== END | disposition home or self-care (01) ==
LOC: C.LAB 10:32
PROVIDERS: ATTEND Urology
DX: N20.0 Calculus of kidney (principal)

== ENCOUNTER → 2017-12-27 | Day surgery (SDC) | payer BC ==
[2017-12-23 11:59] VITALS: Ht 172.7 cm; Wt 60.9 kg
[~2017-12-27] VITALS: Ht 172.7 cm; Wt 60.9 kg
[~2017-12-27] MED LIST changes: +ATROPINE SULFATE 0.1 MG/ML 5ML SYR IV PRN; +CIPROFLOXACIN / D5W 400 MG IV SCH; +CONRAY 30% 150ML BOTTLE ONE; +FENTANYL CITRATE INJ 50 MCG/1 ML 2 ML VIAL IV PRN; +FENTANYL CITRATE INJ 50 MCG/1 ML 2 ML VIAL ONE; +KETOROLAC TROMETHAMINE 30 MG/ML VIAL IV. PRN; +LACTATED RINGER'S 1000ML 1,000 ML IV SCH; +LIDOCAINE HCL 2% 2 ML VIAL (20MG/ML) ONE; +MIDAZOLAM HCL 1 MG/ML 2ML VIAL ONE; +ONDANSETRON INJ 2 MG/ML 2 ML VIAL IV PRN; +ONDANSETRON INJ 2 MG/ML 2 ML VIAL ONE; +OXYC-57 PO; +OXYCODONE/ACETAMINOPHEN 7.5-325 TAB PO PRN; +PHENYLEPHRINE 100MCG/ML 5ML SYR ONE; +PROPOFOL IV EMULSION 10 MG/ML 20 ML VIAL IV ONE
[2017-12-27 05:48] VITALS: BP 103/68; PULSE 73; TEMP 36.6; O2SAT 98
--- NOTE | 2017-12-27 07:04 | History & Physical Bridge Note ---
H&P Re-Evaluation Bridge Note: I have examined the patient, reviewed the History & Physical and in the interval since the performance of the History & Physical I have noted the following changes of clinical significance: No changes noted
--- NOTE | 2017-12-27 07:17 | Discharge Instructions ---
Discharge Instructions Date of Service Dec 27, 2017. Admission Reason for Admission: Stones Discharge Discharge Diagnosis / Problem: Stone Discharge Goals Goal(s): Decrease discomfort, Improve function Activity Recommendations Activity Limitations: resume your previous activity Lifting Limitations: gradually increase as tolerated Exercise/Sports Limitations: gradually increase as tolerated Shower/Bathe: no limitations . Instructions / Follow-Up Instructions / Follow-Up May have blood in urine or pelvic pain. May have discomfort. Call if any fevers. Current Hospital Diet Patient's current hospital diet: Discharge Diet Recommended Diet: Regular Diet Procedures Procedures Performed: Cystoscopy, left stone treatment Pending Studies Studies pending at discharge: no Medical Emergencies . Who to Call and When: Medical Emergencies: If at any time you feel your situation is an emergency, please call 911 immediately. . Non-Emergent Contact Non-Emergency issues call your: Primary Care Provider, Urologist Call Non-Emergent contact if: you have a fever, temperature is above 101, temperature is above 101.5, your pain is not controlled, your pain is worsening . . "Provider Documentation" section prepared by Don Servin,. . VTE Core Measure Inpt VTE Proph given/why not?: SCD's
--- NOTE | 2017-12-27 07:46 | [facility] Operative Report ---
Operative Report Operative Date Dec 27, 2017. Pre-Operative Diagnosis Left Ureteral Stone Post-Operative Diagnosis Same Procedure(s) Performed Cystoscopy, Stent exchange, Retrograde pyelogram, Ureteroscopy, Laser Lithotripsy Surgeon Gareth Estimated Blood Loss Minimal Findings Left Obstructing stone with stent in place. Drains 6x26 Double J Left Anesthesia General Complication(s) None Disposition Recovery Room / PACU Indications Obstructing left stone with stent in place. Risks and benefits discussed. Description of Procedure Patient was consented and brought back to the operating room. Patient was placed under anesthesia in the supine position and moved to the dorsal lithotomy position. Patient was prepped and draped in the regular sterile fashion. A time out was completed. A 30degree Cystoscope was placed into the bladder and the entire bladder was examined. The UO's were identified. The Left side with stent in place was grasped and partially removed. The wire was then placed. A ureteroscope was selected. The scope was placed and taken to the mid ureter. The stone was identified and a laser selected. The stone was pulverized to dust and small fragments. A retrograde was completed. No additional stone fragments were observed. The stone treated, the scope was removed with the wire remaining. With the wire in place, a 6 x [26] Double J stent was placed. It was confirmed with fluoroscopy. With the stent in place, the bladder was emptied. The scope was removed. The patient was cleaned, aroused from anesthesia, and transferred to the pacu in stable condition having tolerated the procedure well with no complications. I was present and participated in all aspects of the procedure. The patient will be monitored in the PACU until transferred. I attest to the content of the Intraoperative Record and any orders documented therein. Any exceptions are noted below.
[2017-12-27 08:40] VITALS: BP 112/72; PULSE 72; TEMP 36.4; O2SAT 99
--- NOTE | 2017-12-27 08:48 | Anesthesiology Progress Note ---
Anesthesia Post Op Note Date & Time Dec 27, 2017 at 08:47 Vital Signs Pain Intensity: 0 Vital Signs Past 12 Hours Date Time Temp Pulse Resp B/P (MAP) Pulse Ox O2 Delivery O2 Flow Rate FiO2 12/27/17 08:35 36.6 66 15 113/75 99 Room Air 12/27/17 08:25 74 14 110/80 98 Room Air 12/27/17 08:15 81 13 112/83 98 Oxymask 10 12/27/17 08:05 73 12 114/77 100 Oxymask 10 12/27/17 07:57 36.6 79 15 112/72 99 Oxymask 10 12/27/17 05:48 36.6 73 18 103/68 (80) 98 Room Air Notes Mental Status: alert / awake / arousable, participated in evaluation Pt Amnestic to Procedure: Yes Nausea / Vomiting: adequately controlled Pain: adequately controlled Airway Patency, RR, SpO2: stable & adequate BP & HR: stable & adequate Hydration State: stable & adequate Anesthetic Complications: no major complications apparent
[2017-12-27 09:10] VITALS: BP 125/76; PULSE 74; TEMP 36.5; O2SAT 100
--- NOTE | 2017-12-27 13:46 | DIAGNOSTIC IMAGING REPORT ---
RETROGRADE INCLUDES KUB HISTORY: LT CYSTO/LASER/STENT EXCHANGE FLUOROSCOPY TIME: 18 seconds. FINDINGS: 6 fluoroscopic spot images were submitted for review. Initial image demonstrates a left ureteral stent which was removed. This is followed by placement of a ureteroscope with contrast injected into the mildly dilated left renal collecting system. This is followed by placement of a left ureteral stent which appears to be in good position. IMPRESSION: Fluoroscopy provided for left ureteral stent exchange.. Electronically signed by: Felipe Jacobson M.D. 12/27/2017 1:45 PM Dictated Date/Time: 12/27/2017 1:44 PM
== END | disposition home or self-care (01) ==
LOC: C.ACU 05:22
PROVIDERS: ATTEND Urology
DX: N20.0 Calculus of kidney (principal); N20.1 Calculus of ureter; Z88.2 Allergy status to sulfonamides; Z98.890 Other specified postprocedural states

== ENCOUNTER → 2018-01-11 | Outpatient (CLI) | payer BC ==
[~2018-01-11] MED LIST changes: -ATROPINE SULFATE 0.1 MG/ML 5ML SYR IV PRN; -CIPROFLOXACIN / D5W 400 MG IV SCH; -CONRAY 30% 150ML BOTTLE ONE; -FENTANYL CITRATE INJ 50 MCG/1 ML 2 ML VIAL IV PRN; -FENTANYL CITRATE INJ 50 MCG/1 ML 2 ML VIAL ONE; -KETOROLAC TROMETHAMINE 30 MG/ML VIAL IV. PRN; -LACTATED RINGER'S 1000ML 1,000 ML IV SCH; -LIDOCAINE HCL 2% 2 ML VIAL (20MG/ML) ONE; -MIDAZOLAM HCL 1 MG/ML 2ML VIAL ONE; -ONDANSETRON INJ 2 MG/ML 2 ML VIAL IV PRN; -ONDANSETRON INJ 2 MG/ML 2 ML VIAL ONE; -OXYCODONE/ACETAMINOPHEN 7.5-325 TAB PO PRN; -PHENYLEPHRINE 100MCG/ML 5ML SYR ONE; -PROPOFOL IV EMULSION 10 MG/ML 20 ML VIAL IV ONE; -TAMS0.4C38 PO
--- NOTE | 2018-01-11 08:09 | DIAGNOSTIC IMAGING REPORT ---
KUB CLINICAL HISTORY: N20.0 NephrolithiasisTO BE DONE EITHER THE NIGHT BEFORE OR [facility]ORNI COMPARISON STUDY: No previous studies for comparison. FINDINGS: Nonobstructive bowel pattern. Left ureteral stent in good position. Faint calcifications overlying the proximal to mid left ureter. A calcification lower pole right kidney and the patient is prior CT scan is not well seen. IMPRESSION: Left ureteral stent in good position. Faint calcifications potentially representing stone fragments in the proximal to mid left ureter. The above report was generated using voice recognition software. It may contain grammatical, syntax or spelling errors. Electronically signed by: Kushal Albert M.D. 01/11/2018 8:07 AM Dictated Date/Time: 01/11/2018 7:57 AM
== END | disposition home or self-care (01) ==
LOC: C.RAD 07:34
PROVIDERS: ATTEND Urology
DX: N20.0 Calculus of kidney (principal)

== ENCOUNTER → 2018-02-18 | Outpatient (CLI) | payer BC ==
--- NOTE | 2018-02-18 13:18 | DIAGNOSTIC IMAGING REPORT ---
(RENAL)RETROPERITON COMP HISTORY: Nephrocalcinosis NEPHROLITHIASIS COMPARISON: None FINDINGS: Right kidney: Maximum dimension 10.0 cm. Slight fullness right renal pelvis. Normal corticomedullary differentiation and cortical thickness. Left kidney: Maximum dimension 11.6 cm. Mild left renal hydronephrosis. Normal corticomedullary differentiation and cortical thickness. Bladder: No bladder wall thickening. The bilateral ureteral jets were identified. IMPRESSION: 1. Mild left renal hydronephrosis. 2. Mild fullness right renal pelvis. The above report was generated using voice recognition software. It may contain grammatical, syntax or spelling errors. Electronically signed by: Kushal Albert M.D. 02/18/2018 1:16 PM Dictated Date/Time: 02/18/2018 1:15 PM
== END | disposition home or self-care (01) ==
LOC: C.ULTR 12:22
PROVIDERS: ATTEND Urology
DX: N20.0 Calculus of kidney (principal)

== ENCOUNTER → 2018-02-25 | Outpatient (CLI) | payer BC ==
[2018-02-25 13:39] LABS: ALKALINE PHOSPHATASE 71 U/L (45-117); AST/SGOT 28 U/L (15-37); BLOOD UREA NITROGEN 20 mg/dl (7-18); CALCIUM 9.2 mg/dl (8.5-10.1); CARBON DIOXIDE 26 mmol/L (21-32); CREATININE 0.94 mg/dl (0.60-1.40); GLUCOSE 93 mg/dl (70-99); POTASSIUM 4.1 mmol/L (3.5-5.1); SODIUM 137 mmol/L (136-145); TOTAL PROTEIN 7.4 gm/dl (6.4-8.2)
[2018-02-25 13:44] LABS: ALT/SGPT 43 U/L (12-78)
== END | disposition home or self-care (01) ==
LOC: C.LAB 11:54
PROVIDERS: ATTEND Urology
DX: N13.30 Unspecified hydronephrosis (principal); R31.0 Gross hematuria

== ENCOUNTER → 2018-03-16 | Outpatient (CLI) | payer BC ==
[~2018-03-16] MED LIST changes: +OPTIRAY 320 IV PRN
--- NOTE | 2018-03-16 14:01 | DIAGNOSTIC IMAGING REPORT ---
ABD/PELVIS COMBO HISTORY: 52 years-old Male N13.30 [id number] Gross hematuriaPer Christine acute hematuria with hydronephrosis. History of nephrolithiasis. COMPARISON: CT 12/09/2017, renal ultrasound 02/18/2018 TECHNIQUE: Multiple axial CT images of the abdomen and pelvis were obtained both with and without the use of 119 mL Optiray 320 IV contrast utilizing hematuria protocol. A dose lowering technique was used consistent with the principals of KALI. FINDINGS: Mild emphysematous changes are suggested within the lower lobes. Lung bases otherwise appear generally clear. No pneumatosis or pneumoperitoneum identified. Imaged inferior cardiac chambers are unremarkable. Liver, gallbladder, spleen, pancreas and adrenal glands are within normal limits. 4 mm nonobstructing calculus is noted within the inferior pole right kidney. No ureteral calculi or obstructive uropathy. Partial distention of the bladder with mild circumferential wall thickening. Bilateral renal collecting systems and ureters are unremarkable. External renal pelvis on the left noted. Distal right ureter is not well opacified. No suspicious mass lesions of the kidneys. Surgical clips project over the upper scrotum bilaterally suggesting prior vasectomy. Trace right hydrocele. Aorta is normal in course and caliber. No bulky adenopathy. There is no bowel obstruction or focal bowel wall thickening identified. Mild to moderate stool volume throughout the colon. No evidence of acute appendicitis. Soft tissues are unremarkable. Bones appear intact. IMPRESSION: 1. 4 mm nonobstructing calculus of the inferior pole right kidney. No ureteral calculi or obstructive uropathy. 2. Mild wall thickening of the bladder is likely secondary to partial distention. Correlate with urinalysis to exclude cystitis. 3. Additional findings as above. The above report was generated using voice recognition software. It may contain grammatical, syntax or spelling errors. Electronically signed by: Adalid Keller M.D. 03/16/2018 2:00 PM Dictated Date/Time: 03/16/2018 1:46 PM
== END | disposition home or self-care (01) ==
LOC: C.CTS 13:11
PROVIDERS: ATTEND Urology
DX: N13.2 Hydronephrosis with renal and ureteral calculous obstruction (principal); R31.0 Gross hematuria

== ENCOUNTER → 2018-03-23 | Outpatient (CLI) | payer BC ==
[~2018-03-23] MED LIST changes: +DICL-201 PO; -OPTIRAY 320 IV PRN
[2018-03-23 12:24] LABS: BASO % 0.5 %; BASO ABS # 0.03 K/uL (0-0.2); EOS % 2.1 %; EOS ABS # 0.12 K/uL (0-0.5); HEMATOCRIT 42.3 % (42-52); HEMOGLOBIN 14.6 g/dL (14.0-18.0); IG# 0.01 K/uL (0.00-0.02); LYMPH % 20.2 %; LYMPH ABS # 1.15 K/uL (1.2-3.4); MEAN CORPUSCULAR HEMOGLOBIN 31.1 pg (25-34); MEAN CORPUSCULAR HGB CONC 34.5 g/dl (32-36); MEAN PLATELET VOLUME 10.3 fL (7.4-10.4); MONO % 6.9 %; MONO ABS # 0.39 K/uL (0.11-0.59); NEUT % 70.1 %; NEUT ABS # 3.99 K/uL (1.4-6.5); PLATELET COUNT 251 K/uL (130-400); RED CELL DISTRIBUTION WIDTH CV 12.9 % (11.5-14.5); RED CELL DISTRIBUTION WIDTH SD 42.7 fL (36.4-46.3); WHITE BLOOD COUNT 5.69 K/uL (4.8-10.8)
[2018-03-23 12:47] LABS: BLOOD UREA NITROGEN 21 mg/dl (7-18); CARBON DIOXIDE 28 mmol/L (21-32); CREATININE 0.89 mg/dl (0.60-1.40); POTASSIUM 4.2 mmol/L (3.5-5.1); SODIUM 136 mmol/L (136-145)
== END | disposition home or self-care (01) ==
LOC: C.LAB1850 10:21
PROVIDERS: ATTEND Urology
DX: N20.0 Calculus of kidney (principal)

== ENCOUNTER → 2018-04-08 | Outpatient (CLI) | payer BC ==
[~2018-04-08] MED LIST changes: -CIPR-255 PO; -OXYC-57 PO
--- NOTE | 2018-04-08 11:18 | DIAGNOSTIC IMAGING REPORT ---
KUB CLINICAL HISTORY: N20.0 Nephrolithiasis COMPARISON STUDY: 01/11/2018 , CT scan dated 03/16/2018 FINDINGS: There is no pathologic bowel dilatation. There is a 5 mm lower pole right renal calculus. No left renal calculi are visualized. IMPRESSION: 1. 5 mm lower pole right renal calculus 2. No evidence of pathologic bowel dilatation Electronically signed by: Tani Falcon M.D. 04/08/2018 11:16 AM Dictated Date/Time: 04/08/2018 11:15 AM
== END | disposition home or self-care (01) ==
LOC: C.RAD1850 10:54
PROVIDERS: ATTEND Urology
DX: N20.0 Calculus of kidney (principal)

== ENCOUNTER → 2018-04-08 | Day surgery (SDC) | payer BC ==
[2018-03-25 10:49] VITALS: Ht 172.7 cm; Wt 60.9 kg
[~2018-04-08] VITALS: Ht 172.7 cm; Wt 60.9 kg
[~2018-04-08] MED LIST changes: +ATROPINE SULFATE 0.1 MG/ML 5ML SYR IV PRN; +CIPROFLOXACIN 400MG / D5W IV SCH; +DEXAMETHASONE SOD INJ 4 MG/ML VIAL ONE; +EpHEDrine SULFATE INJ 50 MG/ML AMP IV PRN; +FENTANYL CITRATE INJ 50 MCG/1 ML 2 ML VIAL IV PRN; +FENTANYL CITRATE INJ 50 MCG/1 ML 2 ML VIAL ONE; +LACTATED RINGER'S 1000ML 1,000 ML IV SCH; +LIDOCAINE HCL 2% 2 ML VIAL (20MG/ML) ONE; +MIDAZOLAM HCL 1 MG/ML 2ML VIAL ONE; +ONDANSETRON INJ 2 MG/ML 2 ML VIAL ONE; +OXYCODONE/ACETAMINOPHEN 5-325 TAB PO PRN; +PROPOFOL IV EMULSION 10 MG/ML 20 ML VIAL ONE
--- NOTE | 2018-04-08 12:15 | History & Physical Bridge Note ---
H&P Re-Evaluation Bridge Note: I have examined the patient, reviewed the History & Physical and in the interval since the performance of the History & Physical I have noted the following changes of clinical significance: right ESWL planned
--- NOTE | 2018-04-08 13:31 | Discharge Instructions ---
Discharge Instructions Date of Service April 08, 2018. Admission Reason for Admission: Stones Discharge Discharge Diagnosis / Problem: Right renal stones s/p ESWL Discharge Goals Goal(s): Decrease discomfort, Improve disease control, Therapeutic intervention Activity Recommendations Activity Limitations: as noted below Lifting Limitations: no more than 25 pounds, gradually increase as tolerated Exercise/Sports Limitations: none, as tolerated May Resume Sexual Activity: when tolerated Shower/Bathe: no limitations Driving or Machine Use: resume 1 day after discharge . Instructions / Follow-Up Instructions / Follow-Up As scheduled in office with KUB Xray beforehand Current Hospital Diet Patient's current hospital diet: Discharge Diet Recommended Diet: Regular Diet (good fluid) Procedures Procedures Performed: Right renal extracorporeal shockwave lithotripsy Pending Studies Studies pending at discharge: yes List of pending studies: KUB Xray as scheduled in office Medical Emergencies . Who to Call and When: Medical Emergencies: If at any time you feel your situation is an emergency, please call 911 immediately. . Non-Emergent Contact Non-Emergency issues call your: Urologist Call Non-Emergent contact if: you have a fever, temperature is above 101, your pain is not controlled, your pain is worsening, your pain is unusual for you, your pain is concerning you, you have any medication questions . . "Provider Documentation" section prepared by Luis Wood. .
--- NOTE | 2018-04-08 14:04 | [facility] Post Operative Brief Note ---
Immediate Operative Summary Operative Date April 08, 2018. Pre-Operative Diagnosis Right renal calculi Post-Operative Diagnosis Same as pre-op Procedure(s) Performed Right Extracorporeal Shock Wave Lithotripsy - Renal Surgeon Dr. Marilynn Wood Supervisor Of Operations Surgeon(s) None Estimated Blood Loss 0 mL Findings Consistent with Post-Op Diagnosis Specimens None Drains None Anesthesia Type General Complication(s) none Disposition Accompanied Pt To Recover: no Disposition: Recovery Room / PACU
--- NOTE | 2018-04-08 14:40 | OPERATIVE REPORT ---
DATE OF OPERATION: 04/08/2018 PREOPERATIVE DIAGNOSIS: Right renal stone. POSTOPERATIVE DIAGNOSIS: Right renal stone. PROCEDURE: Right renal extracorporeal shockwave lithotripsy. SURGEON: Luis Wood M.D. FLOOR STEWARD/STEWARDESS: None. ANESTHESIA: General anesthesia with laryngeal mask. COMPLICATIONS: None. FINDINGS: Excellent stone fragmentation on fluoroscopic imaging. DETAILS OF PROCEDURE: The patient was brought to the litho suite. He was correctly identified and the stone was visualized on his most recent x-rays. After the correct time out was performed the patient was positioned over the therapy head. An adequate level of anesthesia was administered. The extracorporeal shockwave lithotripsy treatment was then commenced. Please see the [place] sheet for complete treatment summary. After completion of the procedure the patient was taken to the recovery room in stable condition. I attest to the content of the Intraoperative Record and any orders documented therein. Any exception s are noted below.
[2018-04-08 14:44] VITALS: TEMP 36.4
--- NOTE | 2018-04-08 14:48 | Anesthesia Progress Nt - [facility] ---
Anesthesia Post Op Note Date & Time April 08, 2018 at 14:47 Vital Signs Pain Intensity: 0 Vital Signs Past 12 Hours Date Time Temp Pulse Resp B/P (MAP) Pulse Ox O2 Delivery O2 Flow Rate FiO2 04/08/18 14:44 36.4 76 18 116/80 (92) 100 Room Air 04/08/18 14:37 78 23 04/08/18 14:37 77 23 99 04/08/18 14:36 77 17 04/08/18 14:36 79 17 99 04/08/18 14:35 36.4 99 Room Air 04/08/18 14:35 110/85 04/08/18 14:31 80 16 115/83 100 04/08/18 14:31 82 16 04/08/18 14:26 63 12 100 04/08/18 14:26 65 12 04/08/18 14:25 108/76 04/08/18 14:21 69 18 04/08/18 14:21 68 18 100 04/08/18 14:20 101/67 04/08/18 14:17 71 15 99 04/08/18 14:17 71 15 04/08/18 14:15 101/66 04/08/18 14:12 73 15 04/08/18 14:12 73 15 98 04/08/18 14:10 96/58 04/08/18 14:09 99/62 04/08/18 14:08 36.4 76 16 99/62 98 Room Air 04/08/18 11:40 36.6 90 16 114/81 (92) 98 Room Air Notes Mental Status: alert / awake / arousable, participated in evaluation Pt Amnestic to Procedure: Yes Nausea / Vomiting: adequately controlled Pain: adequately controlled Airway Patency, RR, SpO2: stable & adequate BP & HR: stable & adequate Hydration State: stable & adequate Anesthetic Complications: no major complications apparent
[2018-04-08 15:05] VITALS: BP 116/78; PULSE 81; O2SAT 99
== END | disposition home or self-care (01) ==
LOC: X.SURG 11:07
PROVIDERS: ATTEND Urology
DX: N20.0 Calculus of kidney (principal); Z82.49 Family history of ischemic heart disease and other diseases of the circulatory system; Z88.1 Allergy status to other antibiotic agents; Z88.2 Allergy status to sulfonamides

== ENCOUNTER → 2018-04-19 | Outpatient (CLI) | payer BC ==
--- NOTE | 2018-04-19 12:04 | DIAGNOSTIC IMAGING REPORT ---
KUB CLINICAL HISTORY: Nephrolithiasis. FINDINGS: An AP supine abdominal radiograph is compared to study dated 04/08/2018 and correlated with abdominal CT dated 03/16/2018. There is a nonobstructed abdominal bowel gas pattern no renal calculi are clearly identified in today's examination. The right lower pole calculus seen on 04/08/2018 is no longer apparent. The bony structures appear intact. IMPRESSION: 1. No renal calculi are identified on today's examination. 2. The right renal calculus seen previously is no longer apparent. Electronically signed by: Deven Mena M.D. 04/19/2018 12:03 PM Dictated Date/Time: 04/19/2018 12:01 PM
== END | disposition home or self-care (01) ==
LOC: C.RAD 11:40
PROVIDERS: ATTEND Urology
DX: N20.0 Calculus of kidney (principal)